=== PATIENT | male | born 1995 | race American Indian/Alaskan Native ===

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

== ENCOUNTER 2018-10-22 12:24 | Emergency (ER) | payer SELFPAY ==
[2018-10-22] MEDS ORDERED: Clindamycin HCl 150 MG Cap PO ONE (12:25)
[2018-10-22 12:37] VITALS: BP 133/79; PULSE 83
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
[2018-10-22 13:17] LABS: ANION GAP 17.5; CHLORIDE,CL 103 mmol/L (101-111); SODIUM,NA 137 mmol/L (135-145)
== END 2018-10-22 14:35 | disposition home or self-care (01) ==
LOC: DL.ED 12:24
DX: S63.91XA Sprain of unspecified part of right wrist and hand, initial encounter (principal); L03.113 Cellulitis of right upper limb; W22.01XA Walked into wall, initial encounter
CPT/HCPCS: 36415; 73130-RT; 80053; 85025; 99283; 99283-25; A9270-GY

== ENCOUNTER 2020-03-16 11:26 | Emergency (ER) | payer MEDICAID, OTHER ==
[2020-03-16 11:35] VITALS: BP 139/95; PULSE 103
--- NOTE | 2020-03-16 11:46 | CR ---
PROCEDURE INFORMATION: Exam: XR Left Shoulder Exam date and time: 03/16/2020 11:37 AM Age: 24 years old Clinical indication: Pain; Shoulder; Left; Additional info: Possible dislocation TECHNIQUE: Imaging protocol: XR Left shoulder. Views: 2 or more views. COMPARISON: No relevant prior studies available. FINDINGS: Bones/joints: The distal clavicle is high-riding relative to the acromion compatible with AC joint separation. No acute fractures identified. Glenohumeral relationship is in anatomic alignment. Soft tissues: Normal. IMPRESSION: AC joint separation without fracture.
[2020-03-16] MEDS ORDERED: Ketorolac 30 MG/ML SDV IM ONE (12:10)
[2020-03-16] MEDS ORDERED: Bacitracin Oint 1 GM U/D Packet TOP ONE (12:11)
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
== END 2020-03-16 12:21 | disposition home or self-care (01) ==
LOC: DL.ED 11:26
DX: S43.102A Unspecified dislocation of left acromioclavicular joint, initial encounter (principal); S40.212A Abrasion of left shoulder, initial encounter; S80.212A Abrasion, left knee, initial encounter; F17.210 Nicotine dependence, cigarettes, uncomplicated; W10.9XXA Fall (on) (from) unspecified stairs and steps, initial encounter
CPT/HCPCS: 73030; 96372; 99283; J1885

== ENCOUNTER 2020-03-20 11:32 | Emergency (ER) | payer MEDICAID, OTHER ==
[2020-03-20 12:09] VITALS: BP 137/79; PULSE 68
[2020-03-20] MEDS ORDERED: Ketorolac 30 MG/ML SDV IM ONE (12:10)
[2020-03-20] MEDS ORDERED: Lidocaine 5% Oint 35.44 GM Tube TOP ONE (12:11)
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
== END 2020-03-20 12:32 | disposition home or self-care (01) ==
LOC: DL.ED 11:32
DX: S41.102A Unspecified open wound of left upper arm, initial encounter (principal); X58.XXXA Exposure to other specified factors, initial encounter
CPT/HCPCS: 96372; 99283; A9270; J1885

== ENCOUNTER 2021-02-07 00:48 | Emergency (ER) | payer OTHER | END 2021-02-07 01:00 | disposition left against medical advice (07) | LOC: DL.ED 00:48 | DX: Z53.21 Procedure and treatment not carried out due to patient leaving prior to being seen by health care provider (principal) ==

== ENCOUNTER 2021-11-17 20:52 | Emergency (ER) | payer SELFPAY ==
[2021-11-17] MEDS ORDERED: Acetaminophen 500 MG Tab PO ONE (21:29)
[2021-11-17] MEDS ORDERED: Ketorolac 30 MG/ML SDV IVPUSH ONE (21:29)
[2021-11-17] MEDS ORDERED: Sodium Chloride 0.9% 1,000 ML IV ONE (21:48)
[2021-11-17] MEDS ORDERED: Iopamidol 612 MG/ML 100 ML Bottle IVPUSH ONE (21:58)
[2021-11-17 22:11] LABS: ANION GAP 16.5 mEq/L (7-13); CHLORIDE,CL 98 mmol/L (98-107); SODIUM,NA 138 mmol/L (136-145)
[2021-11-17 22:18] LABS: METHAMPHETAMINES,URINE POSITIVE (NEGATIVE)
[2021-11-17 22:19] LABS: AMPHETAMINES,URINE POSITIVE (NEGATIVE); BARBITURATES,URINE NEGATIVE (NEGATIVE); BENZODIAZEPINE,URINE NEGATIVE (NEGATIVE); MDMA (ECSTASY), URINE POSITIVE (NEGATIVE); METHADONE,URINE NEGATIVE (NEGATIVE); OPIATES,URINE NEGATIVE (NEGATIVE); OXYCODONE,URINE NEGATIVE (NEGATIVE); PHENCYCLIDINE,URINE NEGATIVE (NEGATIVE); TCA,URINE NEGATIVE (NEGATIVE)
[2021-11-18 01:12] VITALS: BP 143/87; PULSE 102
== END 2021-11-18 00:15 | disposition home or self-care (01) ==
LOC: DL.ED 20:52
DX: M54.50 Low back pain, unspecified (principal); M25.561 Pain in right knee; R82.5 Elevated urine levels of drugs, medicaments and biological substances; F17.210 Nicotine dependence, cigarettes, uncomplicated
CPT/HCPCS: 36415; 70450; 71250; 72125; 72128; 72131; 73562-RT; 80053; 80305-QW; 81001; 83605; 85025; 86140; 87040; 96374; 99283; 99284-25; A9270-GY; J1885; J7030

== ENCOUNTER 2022-04-11 06:30 | Emergency (ER) | payer MEDICAID ==
[2022-04-11 06:26] VITALS: BP 135/87; PULSE 120
[2022-04-11] MEDS ORDERED: Sodium Chloride 0.9% 1,000 ML IV ONE (06:39)
[2022-04-11 07:02] LABS: ANION GAP 19.2 mEq/L (7-13); CHLORIDE,CL 106 mmol/L (98-107); SODIUM,NA 145 mmol/L (136-145)
[2022-04-11 07:07] LABS: ESTIMATED GFR 113 mL/min (>=60)
[2022-04-11 07:47] LABS: AMPHETAMINES,URINE NEGATIVE (NEGATIVE); BARBITURATES,URINE NEGATIVE (NEGATIVE); BENZODIAZEPINE,URINE NEGATIVE (NEGATIVE); MDMA (ECSTASY), URINE NEGATIVE (NEGATIVE); METHADONE,URINE NEGATIVE (NEGATIVE); METHAMPHETAMINES,URINE NEGATIVE (NEGATIVE); OPIATES,URINE NEGATIVE (NEGATIVE); OXYCODONE,URINE NEGATIVE (NEGATIVE); PHENCYCLIDINE,URINE NEGATIVE (NEGATIVE); TCA,URINE NEGATIVE (NEGATIVE)
== END 2022-04-11 08:01 | disposition home or self-care (01) ==
LOC: DL.ED 06:30
DX: T40.411A Poisoning by fentanyl or fentanyl analogs, accidental (unintentional), initial encounter (principal); F10.920 Alcohol use, unspecified with intoxication, uncomplicated; Y90.6 Blood alcohol level of 120-199 mg/100 ml
CPT/HCPCS: 36415; 80053; 80305; 80307; 81003; 83605; 85025; 96360; 99284; J7030

== ENCOUNTER 2022-04-15 21:12 | Emergency (ER) | payer MEDICAID ==
[2022-04-15] MEDS ORDERED: Lidocaine 1% 10 ML MDV IM ONE (21:33)
[2022-04-15] MEDS ORDERED: Bacitracin Oint 1 GM U/D Packet TOP ONE (21:46)
== END 2022-04-15 21:48 | disposition home or self-care (01) ==
LOC: DL.ED 21:12
DX: S51.811A Laceration without foreign body of right forearm, initial encounter (principal); W26.8XXA Contact with other sharp object(s), not elsewhere classified, initial encounter
CPT/HCPCS: 12002; 99282; 99283